=== PATIENT | male | born 1940 | race Caucasian/White ===

== ENCOUNTER 2021-02-06 18:10 | Emergency (ER) | payer OTHER ==
[~2021-02-06] VITALS: Ht 180.3 cm; Wt 104.3 kg
[2021-02-06] MEDS ORDERED: METF500 PO (18:45)
== END 2021-02-06 20:04 | disposition home or self-care (01) ==
LOC: ER 18:10
DX: R53.1 Weakness (principal); E86.0 Dehydration; T88.7XXA Unspecified adverse effect of drug or medicament, initial encounter
CPT/HCPCS: 99285